=== PATIENT | male | born 1975 | race Asian ===

== ENCOUNTER 2016-08-03 07:45 | Day surgery (SDC) | payer OTHER ==
[~2016-08-03] VITALS: Ht 167.6 cm; Wt 74.4 kg
[2016-08-03 08:53] VITALS: Ht 167.6 cm; Wt 74.4 kg
[2016-08-03] MEDS ORDERED: OMEP20CA16 PO (09:02)
[2016-08-03 09:14] VITALS: BP 110/70; PULSE 53; RESP 16
[2016-08-03] MEDS ORDERED: FENTAnyl 50 MCG/ML VIAL ONE (10:10)
[2016-08-03] MEDS ORDERED: MIDAZOLAM 1 MG/ML 2 ML INJ ONE ×2 (10:10)
[2016-08-03 10:25] VITALS: BP 100/67; PULSE 48; RESP 18
--- NOTE | 2016-08-03 11:50 | GILP ---
DATE OF PROCEDURE: 08/03/2016 PROCEDURE: 1. Esophagogastroduodenoscopy with biopsy. 2. Colonoscopy. SURGEON: Rashaad Winchester MD INDICATION: A 41-year-old undergoing this procedure for dysphagia and also for rectal bleeding. Th e risk of the procedure, related and unrelated complications, sedative risks, alternatives discussed and informed consent was obtained. DESCRIPTION OF PROCEDURE: The patient was brought to the GI lab, sedated with 4 mg of Versed, 50 mg of fentanyl. After optimal sedation, scope was passed with much ease into the esophagus. He had a 2 cm esophageal ulceration with hyperemic mucosa above the Z-line. The patient had an incomplete n onobstructing Schatzki's ring. He had a 2 to 3 cm hiatal hernia. Stomach mucosa revealed chronic g astritis. Duodenum first and second part was within normal limits. Retroversion done, hiatal herni a confirmed. Four biopsies taken randomly from the stomach to rule out H. pylori infection. Biopsy taken from the esophageal ulcer to rule out Steve's. Scope was removed with good patient toleran ce. IMPRESSION 1. Esophageal ulceration, LA class C. 2. Nonobstructing Schatzki's ring. 3. Hiatal hernia 3 cm. 4. Gastritis. 5. Normal duodenum. PLAN: Review histopathology. The patient should be on a PPI, Protonix 40 mg once a day. COLONOSCOPY: He was turned around, scope was passed with much ease into the rectum and advanced slo wly all the way into cecum and finally into terminal ileum. Terminal ileum was normal up to 3 feet. Rest of the colon was normal. While coming out, rest of the mucosa thoroughly inspected. No sumeet s lesion was identified. Hemorrhoids, external conformed, retroversion was otherwise normal. IMPRESSION: 1. Hemorrhoids cause of rectal bleeding. 2. Normal colon. 3. Normal terminal ileum. 4. Clarity and cleanliness was good. PLAN: To have a sitz bath and Anusol-HC suppository. Dictated By: RASHAAD ARAGON/MIGDALIA Conf#: [id number] DID#: [id number] CC: RASHAAD WINCHESTER MD; ;*EndCC*
== END 2016-08-03 12:01 | disposition home or self-care (01) ==
LOC: GIL 07:45
PROVIDERS: ATTEND Internal Medicine Gastroenterology
DX: K21.0 Gastro-esophageal reflux disease with esophagitis (principal); K22.2 Esophageal obstruction; K44.9 Diaphragmatic hernia without obstruction or gangrene; K29.70 Gastritis, unspecified, without bleeding; K64.4 Residual hemorrhoidal skin tags
CPT/HCPCS: 43239; 45378; J2250; J3010